=== PATIENT | male | born 1995 | race Caucasian/White ===

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

== ENCOUNTER 2017-12-16 05:04 | Emergency (ER) | END 2017-12-16 08:50 | disposition home or self-care (01) ==

== ENCOUNTER 2018-11-27 18:47 | Emergency (ER) | payer SELFPAY ==
[~2018-11-27] VITALS: Ht 188 cm; Wt 97.3 kg
[2018-11-27 18:55] VITALS: Ht 188 cm; Wt 97.3 kg
[2018-11-27] MEDS ORDERED: morphine 4 MG/ML VIAL IV STA (21:16)
--- NOTE | 2018-11-27 21:16 | ERD ---
ER Documentation Chief Complaint Chief Complaint R SHOULDER PAIN, HX OF MULTIPLE DISLOCATIONS HPI This is a 23-year-old male who presents the emergency department with complaints of right shoulder pain/dislocation. Stated this happened at around 5 PM today while playing basketball. Stated that he is trying to reach a ball when he felt that his right shoulder got dislocated. Stated he has history of multiple right shoulder dislocation. Denies headache, head injury, loss of consciousness, dizziness, neck pain, neck stiffness, throat pain, difficulty swallowing, difficulty breathing lying flat, chest pain, back pain, abdominal pain, nausea, vomiting, constipation, diarrhea, urinary symptoms, loss of bowel and bladder control, trauma, injury, falls, difficulty walking due to pain, numbness or tingling sensation, calf pain, recent travel, recent major surgery in the last 3 weeks, calf pain, recent long travel, recent exposure to any illness, recent antibiotic use in the last 3 months, fever, chills, seizures. Past medical history: Shoulder dislocations. Surgical history: Social: Denies smoking, use of alcoholic beverages, use of illegal drugs. ROS All systems reviewed and are negative except as per history of present illness. Medications Home Meds No Active Prescriptions or Reported Meds Allergies Allergies: Coded Allergies: No Known Allergy (Unverified , 11/28/12) PMhx/Soc History of Surgery: No Anesthesia Reaction: No Hx Neurological Disorder: No Hx Respiratory Disorders: No Hx Cardiac Disorders: No Hx Psychiatric Problems: No Hx Miscellaneous Medical Probl: Yes (RT SHOULDER DISLOCATION) Hx Alcohol Use: No Hx Substance Use: No Hx Tobacco Use: No Smoking Status: Never smoker Physical Exam Vitals Vital Signs Date Temp Pulse Resp B/P (MAP) Pulse Ox O2 O2 Flow FiO2 Time Delivery Rate 11/27/18 99.3 67 18 151/87 96 18:55 (108) Physical Exam Const: No acute distress Head: Atraumatic Eyes: Normal Conjunctiva ENT: Normal External Ears, Nose and Mouth. Neck: Full range of motion. No meningismus. Resp: Clear to auscultation bilaterally Cardio: Regular rate and rhythm, no murmurs Abd: Soft, non tender, non distended. Normal bowel sounds Skin: No petechiae or rashes Back: No midline or flank tenderness. C-spine/T-spine/L-spine are in midline with good and full range of motion and is no swelling/deformity/bulging/point of tenderness. Ext: No cyanosis, or edema. Right shoulder: Swelling with mild deformity. Limited range of motion due to pain. Skin is not warm to touch. Skin is no redness. Right clavicular area is unremarkable. Right humerus is unremarkable. Right elbow is unremarkable. Right forearm/wrist/hand are unremarkable. Right radial pulse within normal limits. Capillary feels right upper extremity is less than 2 seconds. Neur: Awake and alert Psych: Normal Mood and Affect Results 24 hrs Current Medications Medications Dose Sig/Russell Start Time Status Last (Trade) Ordered Route PRN Stop Time Admin Dose Reason Admin Morphine 4 mg ONCE STAT 11/27/18 DC 11/27/18 Sulfate IV 21:16 11/27/18 21:49 (morphine) 21:18 Ondansetron 4 mg STK-MED 11/27/18 DC HCl (Zofran ONCE .ROUTE 22:18 11/27/18 Inj) 22:19 Ondansetron 4 mg ONCE ONCE 11/27/18 DC 11/27/18 HCl (Zofran IV 22:30 11/27/18 22:19 Inj) 22:31 Fentanyl 125 mcg ONCE ONCE 11/27/18 DC 11/27/18 (Sublimaze) IV 22:30 11/27/18 22:25 22:31 Procedures/MDM diagnostic tests: Treatment: Re-evaluation: Differential diagnosis Final diagnosis: Prescription: Follow-up with PCP in the next 24-48 hours. Come back here in the emergency department for any new symptoms or any worsening symptoms. All questions and concerns were answered. Patient and family members verbalized understanding and agreed with plan of care. Hemodynamically stable on discharge. ANGEL HARMON Nov 27, 2018 21:16
[2018-11-27] MEDS ORDERED: ONDANSETRON 4 MG INJ ONE (22:18)
[2018-11-27] MEDS ORDERED: ONDANSETRON 4 MG INJ IV ONE (22:30)
[2018-11-27] MEDS ORDERED: FENTAnyl 50 MCG/ML VIAL IV ONE (22:30)
--- NOTE | 2018-11-27 22:46 | ERD ---
ER Documentation Chief Complaint Chief Complaint R SHOULDER PAIN, HX OF MULTIPLE DISLOCATIONS HPI This is a 23-year-old male who presents for evaluation of right shoulder pain. He has a prior history of multiple right shoulder dislocations, his last dislocation happened about 3 4 months ago. Patient felt a pop and pulling sensation, while he was playing basketball, he denies any numbness or tingling. Patient had no other injury. ROS All systems reviewed and are negative except as per history of present illness. Medications Home Meds No Active Prescriptions or Reported Meds Allergies Allergies: Coded Allergies: No Known Allergy (Unverified , 11/28/12) PMhx/Soc History of Surgery: No Anesthesia Reaction: No Hx Neurological Disorder: No Hx Respiratory Disorders: No Hx Cardiac Disorders: No Hx Psychiatric Problems: No Hx Miscellaneous Medical Probl: Yes (RT SHOULDER DISLOCATION) Hx Alcohol Use: No Hx Substance Use: No Hx Tobacco Use: No Smoking Status: Never smoker Physical Exam Vitals Vital Signs Date Temp Pulse Resp B/P (MAP) Pulse Ox O2 O2 Flow FiO2 Time Delivery Rate 11/27/18 99.3 67 18 151/87 96 18:55 (108) Physical Exam Const: No acute distress Head: Atraumatic Eyes: Normal Conjunctiva ENT: Normal External Ears, Nose and Mouth. Neck: Full range of motion. No meningismus. Resp: Clear to auscultation bilaterally Cardio: Regular rate and rhythm, no murmurs Abd: Soft, non tender, non distended. Normal bowel sounds Skin: No petechiae or rashes Back: No midline or flank tenderness Ext: There is innumerable, depression over the right shoulder, consistent with an anterior shoulder dislocation, there is no axillary numbness, distally, pulses are 2+, sensation is intact to light touch distally. Neur: Awake and alert Psych: Normal Mood and Affect Results 24 hrs Current Medications Medications Dose Sig/Russell Start Time Status Last (Trade) Ordered Route PRN Stop Time Admin Dose Reason Admin Morphine 4 mg ONCE STAT 11/27/18 DC 11/27/18 Sulfate IV 21:16 11/27/18 21:49 (morphine) 21:18 Ondansetron 4 mg STK-MED 11/27/18 DC HCl (Zofran ONCE .ROUTE 22:18 11/27/18 Inj) 22:19 Ondansetron 4 mg ONCE ONCE 11/27/18 DC 11/27/18 HCl (Zofran IV 22:30 11/27/18 22:19 Inj) 22:31 Fentanyl 125 mcg ONCE ONCE 11/27/18 DC 11/27/18 (Sublimaze) IV 22:30 11/27/18 22:25 22:31 Procedures/MDM Is a 23-year-old male who presents for evaluation of a right anterior shoulder dislocation. Patient was given fentanyl, at 125 mcg, his shoulder was reduced without complication, given that he has had so many recurrent short dislocations, I strongly encouraged the patient to follow-up with orthopedic surgery as soon as possible, he agreed to this, at discharge he was in no distress. X-ray Shoulder 3V Interpreted by me: Bones: No fracture Joints: Anterior dislocation of the glenohumeral joint Foreign body: None Shoulder Reduction by me: Anesthesia: Patient given a single dose of IV fentanyl, at 125 mcg, approximately 1.25 mcg/kg Location: Anterior shoulder Technique: External rotation, Results: Quaker of normal anatomic positioning Compl: Neurovascularly intact post procedure. Sling Assessment: Neurovascularly intact post sling placement with good fit. Post-reduction X-ray Shoulder 3V Interpreted by me: Bones: No fracture Joints: Relocation of previously noted dislocation Foreign body: None Departure Diagnosis: Primary Impression: Shoulder dislocation Encounter type: initial encounter Laterality: right Qualified Codes: S43.004A - Unspecified dislocation of right shoulder joint, initial encounter Condition: JULIUS Brice MD Nov 27, 2018 22:46
[2018-11-27 23:33] VITALS: BP 137/74; PULSE 61; RESP 16
== END 2018-11-27 23:34 | disposition home or self-care (01) ==
LOC: FTE 18:47 → E/R 23:34
DX: S43.004A Unspecified dislocation of right shoulder joint, initial encounter (principal); X58.XXXA Exposure to other specified factors, initial encounter; Y92.310 Basketball court as the place of occurrence of the external cause
CPT/HCPCS: 23650; 73030; 96374; 96375; 99284; J2270; J2405; J3010